=== PATIENT | male | born 1985 | race Caucasian/White ===

== ENCOUNTER → 2017-06-03 | Emergency (ER) | payer OTHER ==
[~2017-06-03] VITALS: Ht 182.9 cm; Wt 86.2 kg
== END | disposition home or self-care (01) ==
LOC: ER 15:07
DX: S61.412A Laceration without foreign body of left hand, initial encounter (principal); W45.8XXA Other foreign body or object entering through skin, initial encounter; Y93.89 Activity, other specified; Y92.69 Other specified industrial and construction area as the place of occurrence of the external cause; Y99.8 Other external cause status